=== PATIENT | male | born 1995 | race Caucasian/White ===

== ENCOUNTER 2022-04-11 06:12 | Emergency (ER) | payer SELFPAY ==
--- NOTE | ~2022-04-11 | XR_ITS ---
EXAMINATION: XR FINGER, LEFT CLINICAL INFORMATION: Crush injury COMPARISON: None TECHNIQUE: Three views of the left ring finger. XR/XR finger LT min 2V FINDINGS/IMPRESSION: There is a longitudinal split fracture through the distal phalanx of the 4th finger which is maximally widened at the tuft, approximately 1.5 mm. This extends to the articular surface at the DIP joint where the fracture is nondisplaced. No additional fractures. No radiopaque foreign body.
[2022-04-11 06:44] VITALS: BP 123/80; PULSE 88; RESP 16; TEMP 36.7; O2SAT 100; BMI 30.4
--- NOTE | 2022-04-11 06:57 | ED.EXTPRO ---
HPI - Extremity Problem General Chief complaint: Extremity Injury, Upper Stated complaint: dropped tire on finger Time Seen by Provider: 04/11/22 06:56 Source: patient Mode of arrival: ambulatory Limitations: no limitations History of Present Illness HPI Narrative: tire at work fell on finger, tried to pull finger out, bruise to pad of finger - L ring finger patient is R hand dominant Complaint: other (L ring finger crush injury) Onset (ago): hour(s) (2) Location: left and other (ring finger) Quality: crushing and constant Radiation: none Relieving factors: immobilization Exacerbating factors: palpation Associated symptoms: other (bruising) Context: other (crush injury from tire) Related Data Previous Rx's Medication Instructions Recorded hydrocodone 5 mg-acetaminophen 325 1 tab PO Q6H PRN pain #10 tabs 04/11/22 mg tablet ibuprofen 600 mg tablet 600 mg PO Q6H PRN pain #30 tabs 04/11/22 Allergies Allergy/AdvReac Type Severity Reaction Status Date / Time No Known Allergies Allergy Verified 04/11/22 06:45 Review of Systems Review of Systems: Constitutional : No Fever, No Chills ENT/Mouth : No Ear Pain, No Hoarseness, No sore throat Eyes: No Eye Pain, No Swelling, No Redness, No Foreign Body Cardiovascular : No Chest Pain, No SOB Respiratory : No Cough, No Dyspnea Gastrointestinal : No Nausea, No Vomiting, No Diarrhea, No abdominal Pain Genitourinary : No Dysuria, No Hematuria Musculoskeletal : positive joint pain, No Myalgias, pos Joint Swelling Skin : No Skin lacerations, No rash Neuro : No Weakness, No Numbness, No Loss of Consciousness, No Dizziness, No Headache PMFSH Past Medical History Attestation statement: The following information was validated with the patient. Medical History No pertinent past medical history Social History Social History (Updated 04/11/22 @ 07:46 by Sara Boswell DO) Patient Tobacco Use Status: Never used Tobacco Advance Directives: No Advance Directives Information Provided: Yes Physical Exam Vital Signs: Vital Signs: Last Vital Signs Temp 98.0 F 04/11/22 06:44 Pulse 88 04/11/22 06:44 Resp 16 04/11/22 06:44 BP 123/80 04/11/22 06:44 Pulse Ox 100 04/11/22 06:44 O2 Del Method 04/11/22 06:44 BMI result Body Mass Index 30.4 Appearance: Alert. Oriented X3. No acute distress. Eyes: Pupils equal, round and reactive to light. ENT: Pharynx normal. Neck: Normal inspection. Neck supple. CVS: Pulses normal. Respiratory: No respiratory distress. Abdomen: atraumatic Skin: Skin warm and dry. Normal skin color. Extremities: No lower extremity edema. L ring finger on pad of finger moderate hematoma - distal sensation intact, no subungual hematoma finger is pink and warm to touch BCR in place, he has moderate ttp, can bend finger at PIP but has a hard time at DIP. no other trauma noted. no open wounds Neuro: Oriented X 3. No motor deficit. No sensory deficit. MDM - Extremity (Nontraumatic) MDM Narrative Medical decision making narrative: 26 yo male with crush injury to L ring finger - NV Intact, xrays for fracture ordered. Has hematoma will ice the finger and give digital block for pain - no open wounds noted, will likely need time and elevation/ice to decrease swelling, anticipate fracture has no subungual hematoma Procedures Nerve Block Nerve Block 1: Time out performed: Yes Local Anesthetic: lidocaine 1% Amount of anesthesia used (mL): 3 Side: left Nerve Blocks: digital Procedure Successful: Yes Patient Tolerated Procedure: well and no complications Complications: none Additional Comments: betadine prep Orthopedic Splinting/Casting Injury #1: Side: left Upper Extremity Injury Location: finger (ring - left) Upper Extremity Immobilizer: aluminum form splint Discharge Plan Discharge Clinical Impression: Traumatic hematoma of finger Fracture of distal phalanx of finger Qualifiers: Encounter type: initial encounter Finger: ring finger Fracture type: closed Fracture alignment: displaced Laterality: left Qualified Code(s): S62.635A - Displaced fracture of distal phalanx of left ring finger, initial encounter for closed fracture Patient Disposition: Home, Self-Care Instructions: Finger Fracture (ED), Contusion in Adults (ED) Additional Instructions: return to ED for any worsening symptoms or concerns splint for at least 2 weeks follow up with orthopedics hematoma will need ice and elevation at all times - try to to do this well for the next 3 days - keep above level of heart, ice every for 15 minutes every hour while awake, apply a cloth in betwen Prescriptions: New hydrocodone-acetaminophen 5-325 mg tablet 1 tab PO Q6H PRN (Reason: pain) Qty: 10 0RF Rx Instructions: partial fill okay; Partial Fill upon patient request. ibuprofen 600 mg tablet 600 mg PO Q6H PRN (Reason: pain) Qty: 30 0RF Referrals: Narcisa Rivas PA-C [[employer] [employer]] - 1 week Stand Alone Forms: Work/School Release
[2022-04-11] MEDS: Lidocaine HCl 1 % MPF 5 ML VIAL 2 ML SUBCUT (07:56)
== END 2022-04-11 08:10 | disposition home or self-care (01) ==
PROVIDERS: Emergency Provider Emergency Medicine
DX: S62.635A Displaced fracture of distal phalanx of left ring finger, initial encounter for closed fracture (principal); S60.042A Contusion of left ring finger without damage to nail, initial encounter; M79.642 Pain in left hand; Y29.XXXA Contact with blunt object, undetermined intent, initial encounter; Y93.9 Activity, unspecified; Y99.0 Civilian activity done for income or pay
CPT/HCPCS: 29130; 73140; 99282; 99283